=== PATIENT | male | born 1995 | race African-American/Black ===

== ENCOUNTER 2017-12-16 11:21 | Emergency (ER) | payer OTHER ==
[~2017-12-16] VITALS: Ht 177.8 cm; Wt 83.9 kg
[2017-12-16] MEDS ORDERED: MUPI22OI2 TP (11:54)
[2017-12-16] MEDS ORDERED: DICL100G18 TP (11:54)
[2017-12-16] MEDS ORDERED: DOXY100C2 PO (11:54)
--- NOTE | 2017-12-16 11:55 | PHYS DOC ---
Adult General Chief Complaint Chief Complaint: rash and enlarged lymph nodes HPI HPI Patient is a 22 year old M who presents with a rash behind his ear and enlarged lymph nodes on the right sided. He states that his symptoms started approximately 3-4 days ago and gradually but progressively worsened. He denies fevers sweats or chills. He has minimal nasal congestion. He has no ear pain. He has no other associated symptoms and no other exacerbating/alleviating factors. Review of Systems Review of Systems Constitutional: Denies fever or chills [] Eyes: Denies change in visual acuity, redness, or eye pain [] HENT: Denies sore throat [] Respiratory: Denies cough or shortness of breath [] Cardiovascular: No additional information not addressed in HPI [] GI: Denies abdominal pain, nausea, vomiting, bloody stools or diarrhea [] : Denies dysuria or hematuria [] Musculoskeletal: Denies back pain or joint pain [] Integument: Negative except history of present illness Neurologic: Denies headache, focal weakness or sensory changes [] Endocrine: Denies polyuria or polydipsia [] All other systems were reviewed and found to be within normal limits, except as documented in this note. Family History Family History No pertinent family medical history was reported Current Medications Current Medications Current medications reviewed Physical Exam Physical Exam Constitutional: Well developed, well nourished, no acute distress, non-toxic appearance. [] HENT: Normocephalic, atraumatic, bilateral external ears normal, oropharynx moist, no oral exudates, mild nasal mucosa edema typically on the right [place] Eyes: EOMI, conjunctiva normal, no discharge. [] Neck: Normal range of motion, supple, no stridor. [] Right-sided lymphadenopathy Cardiovascular:Heart rate regular rhythm, no murmur [] Lungs & Thorax: Bilateral breath sounds clear to auscultation [] Abdomen: Bowel sounds normal, soft, no tenderness, no masses, no pulsatile masses. [] Skin: Warm, dry, no erythema, raised indurated erythematous lesion approximately 2 cm in diameter posteriorly and superior to the right ear Extremities: No tenderness, no cyanosis, no clubbing, ROM intact, no edema. [] Neurologic: Alert and oriented X 3, normal motor function, normal sensory function, no focal deficits noted. [] Psychologic: Affect normal, judgement normal, mood normal. [] Current Patient Data Vital Signs Normal vital signs. Please review nursing neck mentation for specifics EKG EKG [] Radiology/Procedures Radiology/Procedures [] Course & Med Decision Making Course & Med Decision Making Pertinent Labs and Imaging studies reviewed. (See chart for details) [] Dragon Disclaimer Dragon Disclaimer This electronic medical record was generated, in whole or in part, using a voice recognition dictation system. Departure Departure: Impression: Primary Impression: Cellulitis Disposition: 01 HOME, SELF-CARE Condition: STABLE Referrals: EDWARD FENG MD (PCP) Patient Instructions: Cellulitis Additional Instructions: Tom was seen in the emergency department for rash and enlarged lymph nodes. No emergency medical condition was found on history or physical exam. His symptoms are most consistent with a skin infection, cellulitis, associated with enlarged lymph nodes. He is given a prescription for topical antibiotics as well as an oral antibiotic to start if his symptoms worsen. He was also given a prescription for Voltaren gel to apply to his lymph nodes as needed for soreness Scripts Doxycycline Hyclate (DOXYCYCLINE HYCLATE) 100 Mg Capsule 1 CAP PO BID for 7 Days, #14 CAP Prov: RALPH ROBERTS MD 12/16/17 Diclofenac Sodium (VOLTAREN) 100 Gm Gel..gram. 1 GM TP QID, #100 GM 2 Refills Prov: RALPH ROBERTS MD 12/16/17 Mupirocin (MUPIROCIN) 22 Gm Oint...g. 1 LINDSAY TP TID for 7 Days, #22 GM Prov: RALPH ROBERTS MD 12/16/17 Problem Qualifiers Primary Impression: Cellulitis Site of cellulitis: head Qualified Codes: L03.811 - Cellulitis of head [any part, except face] RALPH ROBERTS MD Dec 16, 2017 11:55
[2017-12-16 12:00] VITALS: BP 135/79
== END 2017-12-16 12:00 | disposition home or self-care (01) ==
LOC: ER 11:21
DX: L03.811 Cellulitis of head [any part, except face] (principal); R59.1 Generalized enlarged lymph nodes
CPT/HCPCS: 99283

== ENCOUNTER → 2019-01-10 | Outpatient (CLI) | payer BC, OTHER ==
[~2019-01-10] MED LIST: DICL100G18 TP; DOXY100C2 PO; MUPI22OI2 TP
== END | disposition home or self-care (01) ==
LOC: LAB 10:12
PROVIDERS: ATTEND Family Medicine
DX: I25.10 Atherosclerotic heart disease of native coronary artery without angina pectoris (principal)
CPT/HCPCS: 87070; 87880